=== PATIENT | female | born 1940 | race Caucasian/White ===

== ENCOUNTER 2016-08-02 17:15 | Emergency (ER) | payer OTHER, MEDICARE ==
[~2016-08-02] VITALS: Ht 162.6 cm; Wt 90.5 kg
[~2016-08-02 17:15] MED LIST: ACCOLATE10 MG PO; AMLODIPINE BESYL5 MG PO; ANTIVERT25 MG PO; ASCORBIC ACID500 M1 PO; ASPIR-TRIN325 M1 PO; ASPIRIN EC325 MG PO; ASPIRIN325 MG PO; ATROPINE 1100 DROP/5 RIGHT EYE; ATROVENT 00.5 MG/2.5 IH; Aspirin PO; BACITRACIN-POLY30 GM TP; BACTERICIN30 GM TP; BETHANECHOL CHL25 MG PO; CALCIUM600 M1 PO; CARDIZEM60 MG PO; CATAPRES0.2 MG PO; CEFTIN500 MG PO; CENTRUM COMPLE1 EACH PO; CENTRUM SILVER1 EAC4 PO; CIPRO250 MG PO; CLONIDINE HCL0.1 MG; CLONIDINE HCL0.1 MG PO; CLONIDINE HCL0.2 MG; CLOPIDOGREL TAB 75M; COZAAR50 MG PO; CYMBALTA20 MG PO; Combivent IH; DULCOLAX5 MG PO; DUONEB 2.5-0.5 M3 ML IH; ENDOCET 5-3251 EACH PO; Ecotrin PO; GABAPENTIN300 MG PO; GLUCAGON1 MG IM; HUMALOG100 UNIT/2 SC; HYDROCHLOROT TAB 25M; HYDROCHLOROTHIA25 MG PO; Hydrochlorothiazide PO; IMDUR30 MG PO; IPRATR-ALBUTEROL3 ML IH; ISOSORBIDE MONO30 MG PO; LANTUS 10100 UNITS/ SC; LANTUS 3 M100 UNITS/ SC; LANTUS 3 M100 UNITS1; LANTUS 3 M100 UNITS1 SC; LANTUS100 UNIT/1 SQ; LANTUS100 UNIT/2 SC; LASIX40 MG PO; LEVEMIR FL100 UNIT/1 SC; LEVEMIR FL100 UNITS/ SC; LEVEMIR100 UNIT/2 SC; LEVOFLOXACIN250 MG PO; LIDOCAINE700 MG TD; LIDODERM 5% P1 PATCH TD; LOPERAMIDE2 M1 PO; LOPERAMIDE2 MG PO; LOPRESSOR25 MG PO; LOPRESSOR50 MG PO; LORAZEPAM0.5 MG PO; LOSARTAN POTAS100 MG PO; Levaquin PO; Levemir Flexpen SC; Lopressor PO; MECLIZINE HCL PO; MECLIZINE HCL25 M3 PO; MECLIZINE HCL25 MG PO; METANX1 TABLET PO; METHYLPRED TAB 4MG; METOPROLOL SUCC50 MG PO; METOPROLOL TART25 MG PO; METOPROLOL TART50 MG; METOPROLOL TART50 MG PO; Medrol Dosepak PO; NEURONTIN100 MG PO; NEURONTIN300 MG PO; NITROSTAT0.4 MG; NITROSTAT0.4 MG SL; NORVASC10 MG PO; NOVOLIN 70100 UNIT/1 SQ; NOVOLIN,HU100 UNITS/; NOVOLOG MI100 UNIT/M SC; NOVOLOG PE100 UNITS/; NOVOLOG PE100 UNITS/ SC; NOVOLOG100 UNIT/1 SQ; NOVOLOG100 UNIT/2 SQ; NovoLOG Pen 3 ml SC; OMEPRAZOLE20 MG PO; OS CAL PO; OS-CAL 500+D C1 EAC1 PO; OS-CAL 500+D T1 EAC1 PO; OSCAL, OYSTER500 MG PO; OXYCODONE HCL5 MG PO; OXYCODONE-ACET1 EACH PO; PERCOCET 5/31 TABLET PO; PLAVIX75 MG; PLAVIX75 MG PO; POLYSPORIN BOTH EYES; PRED FORTE100 DROP/5 RIGHT EYE; PRINIVIL10 MG PO; PROAIR HFA8.5 GM IH; PROMETHAZINE HC25 M1 PO; PROMETHAZINE12.5 M1 PO; PROTONIX20 MG PO; PROVENTIL,2.5 MG/3 M IH; PROVENTIL2.5 MG/3 M IH; RANITIDINE HCL150 MG PO; Ranitidine HCl PO; SIMVASTATIN; SIMVASTATIN40 MG PO; SIMVASTATIN80 M1 PO; SIMVASTATIN80 MG; SIMVASTATIN80 MG PO; SMZ/TMP DS TAB 800; SPIRIVA1 INHALATI; SPIRIVA1 INHALATI IH; Simvastatin PO; TRAMADOL HCL50 MG; TRAMADOL HCL50 MG PO; TUMS500 MG PO; Tramadol HCl PO; ULTRAM50 MG PO; VIGAMOX 0.60 DROP/3 RIGHT EYE; VITAMIN C500 M1 PO; Vitamin C PO; WOMEN'S 50+ DA1 EACH PO; ZANTAC150 MG PO; ZESTRIL,PRINIVI10 M1 PO; ZESTRIL,PRINIVI10 MG PO; ZOCOR80 MG PO; Zithromax PO; Zocor PO; [UNRECOGNIZED DRUG - OTHER]; [UNRECOGNIZED DRUG - OTHER] IH; [UNRECOGNIZED DRUG - OTHER] PO; predniSONE PO
[2016-08-02] MEDS ORDERED: DOXYCYCLINE HY100 MG PO (19:53)
[2016-08-02 20:15] VITALS: BP 147/89
== END 2016-08-02 20:30 | disposition home or self-care (01) ==
LOC: EME 17:15
PROC: 0HQRXZZ Repair Toe Nail, External Approach (ICD-10-PCS; principal; 2016-08-02)
DX: S91.202A Unspecified open wound of left great toe with damage to nail, initial encounter (principal); S92.352A Displaced fracture of fifth metatarsal bone, left foot, initial encounter for closed fracture; X58.XXXA Exposure to other specified factors, initial encounter; E11.40 Type 2 diabetes mellitus with diabetic neuropathy, unspecified; I10 Essential (primary) hypertension; E78.5 Hyperlipidemia, unspecified; J44.9 Chronic obstructive pulmonary disease, unspecified; J45.909 Unspecified asthma, uncomplicated; Z79.02 Long term (current) use of antithrombotics/antiplatelets; Z79.82 Long term (current) use of aspirin
CPT/HCPCS: 73630; 99281; 99284

== ENCOUNTER 2016-09-16 09:14 | Inpatient (IN) | payer OTHER, MEDICARE ==
[~2016-09-16] VITALS: Ht 162.6 cm; Wt 93.9 kg
[2016-09-16] VITALS (8 sets, daily range): BP systolic 109–128; BP diastolic 50–73
[~2016-09-16 09:14] MED LIST changes: +DOXYCYCLINE HY100 MG PO
[2016-09-16] MEDS ORDERED: LISINOPRIL5 MG PO (09:29)
[2016-09-16] MEDS ORDERED: HUMALOG100 UNIT/2 SC ×2 (09:30→11:53)
[2016-09-16] MEDS ORDERED: LANTUS 10100 UNITS/ SC (09:30)
[2016-09-16 10:07] LABS: EOSINOPHIL (%) 0.1 % (0-5); HEMATOCRIT 38.7 % (36.0-46.0); IMMATURE GRANULOCYTE COUNT 0.1 K/uL; INSTRUMENT ABS NEUTROPHIL CT 8.4 K/uL; MCH 28.1 PG (29.0-34.0); MCHC 31.3 G/DL (30.0-36.0); MEAN PLAT.VOLUME 10.8 uM^3 (9.5-12.4); MONOCYTE (%) 1.9 % (3-12); MONOCYTE COUNT 0.2 K/uL (0-0.8); NEUTROPHIL (%) 86.2 % (45-76); NEUTROPHIL COUNT 8.4 K/uL (1.8-6.4); PLATELET COUNT 334 K/uL (156-360); RBC DIS.WIDTH-CV 13.3 % (11.8-14.6); WHITE BLOOD COUNT 9.7 K/uL (4.1-10.2)
[2016-09-16 10:17] LABS: CHLORIDE 97 mEq/L (99-109); POTASSIUM 5.9 mEq/L (3.7-5.4); SODIUM 136 mEq/L (136-147)
[2016-09-16 10:21] LABS: ANION GAP 21 MEQ/L (2-14); TOTAL BILIRUBIN 0.7 mg/dL (0.0-1.0)
[2016-09-16 10:23] LABS: ALKALINE PHOSPHATASE 205 IU/L (3-129); GFR ESTIMATE (CALCULATED) 36 mL/min/
[2016-09-16 10:24] LABS: UREA NITROGEN (BUN) 30 mg/dL (9-23)
[2016-09-16 10:32] LABS: TROP-I INTERPRETATION NEGATIVE; TROPONIN-I < 0.01 ng/mL (0.0-0.30)
[2016-09-16 10:38] LABS: GLUCOSE 705 mg/dL (70-99)
[2016-09-16 10:57] LABS: ADD MIUA? NO; BILIRUBIN NEGATIVE; BLOOD NEGATIVE; COLOR STRAW ((YELLOW)); GLUCOSE (STRIP) >=500; KETONES 80; LEUKOCYTES NEGATIVE; NITRITE NEGATIVE; PROTEIN (STRIP) NEGATIVE; SPECIFIC GRAVITY 1.022 (1.000-1.030); UCUL ADDED? NO; UROBILINOGEN 0.2 MG/DL (0.2-1.0)
[2016-09-16 11:12] LABS: INFLUENZA A VIRAL ANTIGEN NEGATIVE; INFLUENZA B VIRAL ANTIGEN NEGATIVE
[2016-09-16 11:15] LABS: BASE EXCESS -7.8 mEq/L (-3 to +3); BICARBONATE 18.9 mEq/L (22-26); CARBOXY HGB 2.8 % (0-5); METHEMOGLOBIN 0.6 % (0-1.5); PCO2 43 mm Hg (35-45); PO2 117 mm Hg (80-100)
[2016-09-16 11:16] LABS: COMMENTS - BLOOD GASES A+C+; DEVICE NC; O2 FLOW 3 L/MIN; pH 7.25 (7.35-7.45)
[2016-09-16 13:30] LABS: Estimated Average Glucose 203 mg/dL (70-123); HEMOGLOBIN A1c (GLYCOHEMOGLOB) 8.7 % HGB (Below 5.7)
[2016-09-16 17:28] LABS: ANION GAP 13 MEQ/L (2-14); CHLORIDE 104 MEQ/L (99-109); GFR ESTIMATE (CALCULATED) 51 mL/min/; SAMPLE HEMOLYSIS CHECK 0; SAMPLE ICTERIC CHECK 0; SAMPLE LIPEMIA CHECK 0; SODIUM 138 MEQ/L (136-147); UREA NITROGEN (BUN) 30 mg/dL (9-23)
[2016-09-16 17:29] LABS: GLUCOSE 448 mg/dL (70-99); POTASSIUM 4.2 MEQ/L (3.7-5.4)
[2016-09-16 17:44] LABS: POINT-OF-CARE METER ID UU13113731; POINT-OF-CARE USER ID NUTJLF39
[2016-09-16 18:48] LABS: POINT-OF-CARE METER ID UU14162636
[2016-09-16 18:50] LABS: METH RESISTANT S AUREUS PCR NEGATIVE (NEGATIVE)
[2016-09-16 19:00] LABS: PROBE CHECK PASS; SPECIMEN PROCESSING CONTROL PASS
[2016-09-16 19:56] LABS: POINT-OF-CARE METER ID UU13113731
[2016-09-16 20:46] LABS: ANION GAP 8 MEQ/L (2-14); CHLORIDE 109 MEQ/L (99-109); GFR ESTIMATE (CALCULATED) 57 mL/min/; GLUCOSE 270 mg/dL (70-99); POTASSIUM 4.1 MEQ/L (3.7-5.4); SAMPLE HEMOLYSIS CHECK 0; SAMPLE ICTERIC CHECK 0; SAMPLE LIPEMIA CHECK 0; SODIUM 141 MEQ/L (136-147); UREA NITROGEN (BUN) 29 mg/dL (9-23)
[2016-09-16 21:14] LABS: POINT-OF-CARE METER ID UU13113731
[2016-09-16 22:05] LABS: POINT-OF-CARE METER ID UU13113731
[2016-09-16 23:05] LABS: POINT-OF-CARE METER ID UU13113731
[2016-09-17] VITALS (21 sets, daily range): BP systolic 86–154; BP diastolic 34–76
[2016-09-17 00:19] LABS: POINT-OF-CARE METER ID UU14174217
[2016-09-17 01:21] LABS: POINT-OF-CARE METER ID UU14174217; POINT-OF-CARE USER ID ENVSME70
[2016-09-17 01:50] LABS: POTASSIUM 3.7 mEq/L (3.7-5.4); SODIUM 144 mEq/L (136-147)
[2016-09-17 01:51] LABS: CHLORIDE 109 mEq/L (99-109)
[2016-09-17 01:52] LABS: GLUCOSE 166 mg/dL (70-99)
[2016-09-17 01:53] LABS: ANION GAP 11 MEQ/L (2-14)
[2016-09-17 01:56] LABS: GFR ESTIMATE (CALCULATED) 51 mL/min/
[2016-09-17 01:57] LABS: UREA NITROGEN (BUN) 28 mg/dL (9-23)
[2016-09-17 03:12] LABS: POINT-OF-CARE METER ID UU14174217; POINT-OF-CARE USER ID ENVSME70
[2016-09-17 05:02] LABS: POINT-OF-CARE METER ID UU14174217
[2016-09-17 05:04] LABS: EOSINOPHIL (%) 2.2 % (0-5); EOSINOPHIL COUNT 0.2 K/uL (0-0.3); HEMATOCRIT 30.6 % (36.0-46.0); IMMATURE GRANULOCYTE (%) 0.6 % (0.0-0.7); IMMATURE GRANULOCYTE COUNT 0.1 K/uL; INSTRUMENT ABS NEUTROPHIL CT 5.8 K/uL; LYMPHOCYTE COUNT 2.6 K/uL (1.0-2.8); MCH 28.1 PG (29.0-34.0); MCV 87.7 FL (83-99); MEAN PLAT.VOLUME 9.7 uM^3 (9.5-12.4); MONOCYTE (%) 6.4 % (3-12); MONOCYTE COUNT 0.6 K/uL (0-0.8); NEUTROPHIL COUNT 5.8 K/uL (1.8-6.4); PLATELET COUNT 310 K/uL (156-360); RBC DIS.WIDTH-CV 13.6 % (11.8-14.6); RBC DIS.WIDTH-SD 43.8 % (39-53); RED BLOOD COUNT 3.49 M/uL (3.80-5.20); WHITE BLOOD COUNT 9.3 K/uL (4.1-10.2)
[2016-09-17 05:22] LABS: CHLORIDE 110 mEq/L (99-109); POTASSIUM 3.6 mEq/L (3.7-5.4); SODIUM 143 mEq/L (136-147)
[2016-09-17 05:23] LABS: MAGNESIUM 1.9 mg/dL (1.3-2.7)
[2016-09-17 05:24] LABS: GLUCOSE 151 mg/dL (70-99)
[2016-09-17 05:26] LABS: ANION GAP 9 MEQ/L (2-14)
[2016-09-17 05:28] LABS: GFR ESTIMATE (CALCULATED) 51 mL/min/
[2016-09-17 05:29] LABS: UREA NITROGEN (BUN) 26 mg/dL (9-23)
[2016-09-17 17:42] LABS: POINT-OF-CARE METER ID UU14162636
[2016-09-17 23:20] LABS: POINT-OF-CARE METER ID UU13113803; POINT-OF-CARE USER ID PHATLC
[2016-09-18] VITALS (10 sets, daily range): BP systolic 114–155; BP diastolic 54–88
[2016-09-18 06:02] LABS: EOSINOPHIL (%) 4.1 % (0-5); EOSINOPHIL COUNT 0.3 K/uL (0-0.3); HEMATOCRIT 31.4 % (36.0-46.0); IMMATURE GRANULOCYTE (%) 0.4 % (0.0-0.7); INSTRUMENT ABS NEUTROPHIL CT 4.3 K/uL; LYMPHOCYTE COUNT 1.9 K/uL (1.0-2.8); MCHC 31.2 G/DL (30.0-36.0); MCV 89.7 FL (83-99); MEAN PLAT.VOLUME 10.2 uM^3 (9.5-12.4); MONOCYTE (%) 7.2 % (3-12); MONOCYTE COUNT 0.5 K/uL (0-0.8); NEUTROPHIL COUNT 4.3 K/uL (1.8-6.4); PLATELET COUNT 294 K/uL (156-360); RBC DIS.WIDTH-CV 13.7 % (11.8-14.6); RBC DIS.WIDTH-SD 44.7 % (39-53); WHITE BLOOD COUNT 7.1 K/uL (4.1-10.2)
[2016-09-18 06:42] LABS: ANION GAP 7 MEQ/L (2-14); CHLORIDE 108 MEQ/L (99-109); GFR ESTIMATE (CALCULATED) 57 mL/min/; POTASSIUM 3.9 MEQ/L (3.7-5.4); SAMPLE HEMOLYSIS CHECK 0; SAMPLE ICTERIC CHECK 0; SAMPLE LIPEMIA CHECK 0; SODIUM 140 MEQ/L (136-147); UREA NITROGEN (BUN) 22 mg/dL (9-23)
[2016-09-18 06:44] LABS: GLUCOSE 79 mg/dL (70-99)
[2016-09-18 09:35] LABS: POINT-OF-CARE METER ID UU14162636
[2016-09-18 12:07] LABS: POINT-OF-CARE METER ID UU14162636
[2016-09-18 18:25] LABS: ANION GAP 8 MEQ/L (2-14); CHLORIDE 107 MEQ/L (99-109); GFR ESTIMATE (CALCULATED) 57 mL/min/; POTASSIUM 3.9 MEQ/L (3.7-5.4); SAMPLE HEMOLYSIS CHECK 0; SAMPLE ICTERIC CHECK 0; SAMPLE LIPEMIA CHECK 0; SODIUM 140 MEQ/L (136-147); UREA NITROGEN (BUN) 18 mg/dL (9-23)
[2016-09-18 18:35] LABS: GLUCOSE 114 mg/dL (70-99)
[2016-09-19 03:45] VITALS: BP 144/70
[2016-09-19 06:45] LABS: EOSINOPHIL (%) 3.3 % (0-5); EOSINOPHIL COUNT 0.2 K/uL (0-0.3); IMMATURE GRANULOCYTE (%) 0.8 % (0.0-0.7); IMMATURE GRANULOCYTE COUNT 0.1 K/uL; INSTRUMENT ABS NEUTROPHIL CT 4.2 K/uL; LYMPHOCYTE COUNT 1.4 K/uL (1.0-2.8); MCH 28.2 PG (29.0-34.0); MCHC 31.9 G/DL (30.0-36.0); MCV 88.3 FL (83-99); MEAN PLAT.VOLUME 10.2 uM^3 (9.5-12.4); MONOCYTE (%) 8.9 % (3-12); MONOCYTE COUNT 0.6 K/uL (0-0.8); NEUTROPHIL (%) 65.2 % (45-76); NEUTROPHIL COUNT 4.2 K/uL (1.8-6.4); PLATELET COUNT 284 K/uL (156-360); RBC DIS.WIDTH-CV 13.8 % (11.8-14.6); RBC DIS.WIDTH-SD 44.4 % (39-53); RED BLOOD COUNT 3.51 M/uL (3.80-5.20); WHITE BLOOD COUNT 6.4 K/uL (4.1-10.2)
[2016-09-19 07:07] VITALS: BP 159/75
[2016-09-19 09:45] LABS: ANION GAP 9 MEQ/L (2-14); CHLORIDE 107 MEQ/L (99-109); GFR ESTIMATE (CALCULATED) > 59 mL/min/; GLUCOSE 154 mg/dL (70-99); POTASSIUM 3.9 MEQ/L (3.7-5.4); SAMPLE HEMOLYSIS CHECK 0; SAMPLE ICTERIC CHECK 0; SAMPLE LIPEMIA CHECK 0; SODIUM 142 MEQ/L (136-147); UREA NITROGEN (BUN) 15 mg/dL (9-23)
[2016-09-19 10:15] LABS: D-DIMER ELISA 1.91 mg/L FEU (< 0.57)
[2016-09-19 16:20] VITALS: BP 124/72
[2016-09-19 19:48] LABS: ANION GAP 8 MEQ/L (2-14); CHLORIDE 105 MEQ/L (99-109); GFR ESTIMATE (CALCULATED) > 59 mL/min/; GLUCOSE 214 mg/dL (70-99); SAMPLE HEMOLYSIS CHECK 0; SAMPLE ICTERIC CHECK 0; SAMPLE LIPEMIA CHECK 0; SODIUM 139 MEQ/L (136-147); UREA NITROGEN (BUN) 15 mg/dL (9-23)
[2016-09-20 00:55] VITALS: BP 124/74
[2016-09-20 08:00] VITALS: BP 122/60
[2016-09-20 08:56] LABS: EOSINOPHIL (%) 2.8 % (0-5); EOSINOPHIL COUNT 0.2 K/uL (0-0.3); IMMATURE GRANULOCYTE (%) 0.7 % (0.0-0.7); IMMATURE GRANULOCYTE COUNT 0.1 K/uL; INSTRUMENT ABS NEUTROPHIL CT 5.3 K/uL; MCH 28.1 PG (29.0-34.0); MCHC 31.5 G/DL (30.0-36.0); MCV 89.2 FL (83-99); MEAN PLAT.VOLUME 10.2 uM^3 (9.5-12.4); MONOCYTE (%) 7.7 % (3-12); MONOCYTE COUNT 0.6 K/uL (0-0.8); NEUTROPHIL COUNT 5.3 K/uL (1.8-6.4); PLATELET COUNT 281 K/uL (156-360); RBC DIS.WIDTH-CV 13.9 % (11.8-14.6); WHITE BLOOD COUNT 7.2 K/uL (4.1-10.2)
[2016-09-20 09:08] LABS: ALKALINE PHOSPHATASE 118 IU/L (3-129); ANION GAP 9 MEQ/L (2-14); CHLORIDE 104 MEQ/L (99-109); GFR ESTIMATE (CALCULATED) > 59 mL/min/; POTASSIUM 3.8 MEQ/L (3.7-5.4); SAMPLE HEMOLYSIS CHECK 0; SAMPLE ICTERIC CHECK 0; SAMPLE LIPEMIA CHECK 0; SODIUM 138 MEQ/L (136-147); TOTAL BILIRUBIN 0.3 MG/DL (0.0-1.0); UREA NITROGEN (BUN) 11 mg/dL (9-23)
[2016-09-20 09:11] LABS: GLUCOSE 105 mg/dL (70-99)
[2016-09-20 16:00] VITALS: BP 150/70
[2016-09-21 00:05] VITALS: BP 143/70
[2016-09-21 06:35] VITALS: BP 155/74
[2016-09-21 06:54] LABS: POINT-OF-CARE METER ID UU14162508
[2016-09-21 08:21] LABS: ALKALINE PHOSPHATASE 141 IU/L (3-129); ANION GAP 8 MEQ/L (2-14); CHLORIDE 103 MEQ/L (99-109); GFR ESTIMATE (CALCULATED) > 59 mL/min/; MAGNESIUM 2.2 mg/dl (1.3-2.7); POTASSIUM 4.2 MEQ/L (3.7-5.4); SAMPLE HEMOLYSIS CHECK 0; SAMPLE ICTERIC CHECK 0; SAMPLE LIPEMIA CHECK 0; SODIUM 138 MEQ/L (136-147); UREA NITROGEN (BUN) 14 mg/dL (9-23)
[2016-09-21 08:23] LABS: GLUCOSE 345 mg/dL (70-99); TOTAL BILIRUBIN 0.4 MG/DL (0.0-1.0)
[2016-09-21 09:05] LABS: EOSINOPHIL (%) 0.2 % (0-5); HEMATOCRIT 33.1 % (36.0-46.0); IMMATURE GRANULOCYTE (%) 1.1 % (0.0-0.7); IMMATURE GRANULOCYTE COUNT 0.1 K/uL; INSTRUMENT ABS NEUTROPHIL CT 3.4 K/uL; LYMPHOCYTE COUNT 0.6 K/uL (1.0-2.8); MCH 27.7 PG (29.0-34.0); MCHC 31.4 G/DL (30.0-36.0); MEAN PLAT.VOLUME 10.5 uM^3 (9.5-12.4); MONOCYTE (%) 8.9 % (3-12); MONOCYTE COUNT 0.4 K/uL (0-0.8); NEUTROPHIL (%) 76.6 % (45-76); NEUTROPHIL COUNT 3.4 K/uL (1.8-6.4); PLATELET COUNT 302 K/uL (156-360); RBC DIS.WIDTH-CV 13.6 % (11.8-14.6); RED BLOOD COUNT 3.76 M/uL (3.80-5.20)
[2016-09-21 09:06] LABS: WHITE BLOOD COUNT 4.4 K/uL (4.1-10.2)
[2016-09-21 11:44] LABS: POINT-OF-CARE METER ID UU14162508
[2016-09-21 15:42] VITALS: BP 151/73
[2016-09-21 16:44] LABS: POINT-OF-CARE METER ID UU14162508
[2016-09-21 21:50] LABS: POINT-OF-CARE METER ID UU14162508
[2016-09-21 23:39] VITALS: BP 140/67
[2016-09-22 06:37] LABS: POINT-OF-CARE METER ID UU14162508
[2016-09-22 07:30] VITALS: BP 182/90
[2016-09-22 07:51] LABS: ALKALINE PHOSPHATASE 132 IU/L (3-129); ANION GAP 6 MEQ/L (2-14); CHLORIDE 104 MEQ/L (99-109); GFR ESTIMATE (CALCULATED) > 59 mL/min/; GLUCOSE 248 mg/dL (70-99); MAGNESIUM 2.3 mg/dl (1.3-2.7); POTASSIUM 4.3 MEQ/L (3.7-5.4); SAMPLE HEMOLYSIS CHECK 0; SAMPLE ICTERIC CHECK 0; SAMPLE LIPEMIA CHECK 0; SODIUM 140 MEQ/L (136-147); UREA NITROGEN (BUN) 17 mg/dL (9-23)
[2016-09-22 07:52] LABS: TOTAL BILIRUBIN 0.3 MG/DL (0.0-1.0)
[2016-09-22 07:57] LABS: EOSINOPHIL (%) 0 % (0-5); HEMATOCRIT 31.3 % (36.0-46.0); IMMATURE GRANULOCYTE COUNT 0.1 K/uL; INSTRUMENT ABS NEUTROPHIL CT 4.6 K/uL; LYMPHOCYTE COUNT 0.7 K/uL (1.0-2.8); MCH 27.6 PG (29.0-34.0); MCHC 31.6 G/DL (30.0-36.0); MCV 87.2 FL (83-99); MEAN PLAT.VOLUME 10.2 uM^3 (9.5-12.4); MONOCYTE COUNT 0.5 K/uL (0-0.8); NEUTROPHIL (%) 77.4 % (45-76); NEUTROPHIL COUNT 4.6 K/uL (1.8-6.4); PLATELET COUNT 333 K/uL (156-360); RBC DIS.WIDTH-CV 13.5 % (11.8-14.6); RED BLOOD COUNT 3.59 M/uL (3.80-5.20)
[2016-09-22 08:13] LABS: WHITE BLOOD COUNT 5.9 K/uL (4.1-10.2)
[2016-09-22 11:32] LABS: POINT-OF-CARE METER ID UU14162508
[2016-09-22 15:23] LABS: POINT-OF-CARE METER ID UU13113694
[2016-09-22 21:45] LABS: POINT-OF-CARE METER ID UU14162508
[2016-09-23 00:41] VITALS: BP 128/67
[2016-09-23 05:35] LABS: EOSINOPHIL (%) 0 % (0-5); HEMATOCRIT 30.5 % (36.0-46.0); IMMATURE GRANULOCYTE (%) 0.6 % (0.0-0.7); INSTRUMENT ABS NEUTROPHIL CT 3.5 K/uL; LYMPHOCYTE COUNT 1.1 K/uL (1.0-2.8); MCH 27.7 PG (29.0-34.0); MCHC 31.5 G/DL (30.0-36.0); MCV 87.9 FL (83-99); MEAN PLAT.VOLUME 10.1 uM^3 (9.5-12.4); MONOCYTE (%) 12.1 % (3-12); MONOCYTE COUNT 0.7 K/uL (0-0.8); NEUTROPHIL COUNT 3.5 K/uL (1.8-6.4); PLATELET COUNT 371 K/uL (156-360); RBC DIS.WIDTH-CV 13.7 % (11.8-14.6); RBC DIS.WIDTH-SD 44.2 % (39-53); RED BLOOD COUNT 3.47 M/uL (3.80-5.20); WHITE BLOOD COUNT 5.4 K/uL (4.1-10.2)
[2016-09-23 06:06] LABS: ALKALINE PHOSPHATASE 121 IU/L (3-129); ANION GAP 5 MEQ/L (2-14); CHLORIDE 102 MEQ/L (99-109); GFR ESTIMATE (CALCULATED) > 59 mL/min/; GLUCOSE 184 mg/dL (70-99); MAGNESIUM 2.4 mg/dl (1.3-2.7); POTASSIUM 4.2 MEQ/L (3.7-5.4); SAMPLE HEMOLYSIS CHECK 0; SAMPLE ICTERIC CHECK 0; SAMPLE LIPEMIA CHECK 0; SODIUM 138 MEQ/L (136-147); UREA NITROGEN (BUN) 19 mg/dL (9-23)
[2016-09-23 06:11] LABS: TOTAL BILIRUBIN 0.4 MG/DL (0.0-1.0)
[2016-09-23 06:59] LABS: POINT-OF-CARE METER ID UU14162508
[2016-09-23 07:40] VITALS: BP 130/69
[2016-09-23 08:31] LABS: POINT-OF-CARE METER ID UU14162636
[2016-09-23 08:32] LABS: POINT-OF-CARE METER ID UU14100415
[2016-09-23 08:32] LABS: POINT-OF-CARE METER ID UU13113731
[2016-09-23 08:32] LABS: POINT-OF-CARE METER ID UU14100415
[2016-09-23 08:32] LABS: POINT-OF-CARE METER ID UU14100415
[2016-09-23 11:31] LABS: POINT-OF-CARE METER ID UU14162508
[2016-09-23 16:49] LABS: POINT-OF-CARE METER ID UU13113819
[2016-09-23 20:00] VITALS: BP 98/53
[2016-09-24 00:15] VITALS: BP 163/74
[2016-09-24 03:10] VITALS: BP 139/67
[2016-09-24 06:07] LABS: ALKALINE PHOSPHATASE 113 IU/L (3-129); ANION GAP 8 MEQ/L (2-14); CHLORIDE 103 MEQ/L (99-109); GFR ESTIMATE (CALCULATED) > 59 mL/min/; MAGNESIUM 2.4 mg/dl (1.3-2.7); SAMPLE HEMOLYSIS CHECK 1; SAMPLE ICTERIC CHECK 0; SAMPLE LIPEMIA CHECK 0; SODIUM 141 MEQ/L (136-147); UREA NITROGEN (BUN) 19 mg/dL (9-23)
[2016-09-24 06:08] LABS: GLUCOSE 303 mg/dL (70-99); POTASSIUM 4.5 MEQ/L (3.7-5.4); TOTAL BILIRUBIN 0.5 MG/DL (0.0-1.0)
[2016-09-24 06:13] LABS: ABS NEUTROPHIL COUNT 2.5; BAND NEUTROPHILS 1.8 % (0-8.0); EOSINOPHIL ABS CT 0; HEMATOCRIT 30.9 % (36.0-46.0); INSTRUMENT ABS NEUTROPHIL CT 2.2 K/uL; LYMPHOCYTES 20.3 % (15.0-45.0); MCV 87.5 FL (83-99); MEAN PLAT.VOLUME 10.3 uM^3 (9.5-12.4); PLAT.SUFFICIENCY ADEQUATE; PLATELET COUNT 341 K/uL (156-360); RBC DIS.WIDTH-CV 13.6 % (11.8-14.6); RBC DIS.WIDTH-SD 43.6 % (39-53); RED BLOOD COUNT 3.53 M/uL (3.80-5.20); SEG.NEUTROPHILS 69.9 % (46.0-76.0)
[2016-09-24 06:14] LABS: WHITE BLOOD COUNT 3.5 K/uL (4.1-10.2)
[2016-09-24 07:10] VITALS: BP 155/79
[2016-09-24 11:21] VITALS: BP 154/82
[2016-09-24 16:10] VITALS: BP 153/72
[2016-09-24 23:16] VITALS: BP 145/73
[2016-09-25 00:13] VITALS: BP 121/62
[2016-09-25 06:54] VITALS: BP 157/71
[2016-09-25 08:55] LABS: ABS NEUTROPHIL COUNT 3.4; ANISOCYTOSIS 1+; EOSINOPHIL ABS CT 0; HEMATOCRIT 32.2 % (36.0-46.0); INSTRUMENT ABS NEUTROPHIL CT 3.5 K/uL; LYMPHOCYTES 32.7 % (15.0-45.0); MCH 27.5 PG (29.0-34.0); MCHC 31.1 G/DL (30.0-36.0); MCV 88.5 FL (83-99); MEAN PLAT.VOLUME 10.1 uM^3 (9.5-12.4); MICROCYTOSIS 1+; OVALOCYTES 1+; PLAT.SUFFICIENCY INCREASED; PLATELET COUNT 413 K/uL (156-360); POIKILOCYTOSIS 1+; POLYCHROMASIA 1+; RBC DIS.WIDTH-CV 13.6 % (11.8-14.6); RBC DIS.WIDTH-SD 43.7 % (39-53); RED BLOOD COUNT 3.64 M/uL (3.80-5.20); SEG.NEUTROPHILS 60.2 % (46.0-76.0); WHITE BLOOD COUNT 5.6 K/uL (4.1-10.2)
[2016-09-25] MEDS ORDERED: SPIRIVA RESPIMAT4 GM IH (10:11)
[2016-09-25] MEDS ORDERED: PANTOPRAZOLE SO40 MG PO (10:12)
[2016-09-25] MEDS ORDERED: ADVAIR HFA120 INHALA IH (10:12)
[2016-09-25] MEDS ORDERED: PREDNISONE10 MG PO (10:13)
[2016-09-25] MEDS ORDERED: ENDOCET 5-3251 EACH PO (10:13)
[2016-09-25] MEDS ORDERED: CALCIUM 500 +1 EACH PO (10:14)
== END 2016-09-25 14:05 | DRG 637 ==
LOC: EME → EDBD 09:14 → EDOF 14:52 → 2EASTP 14:52 → 4WEST 14:52 → 2EASTP 09-18 14:33
PROVIDERS: Emergency Medicine; Hospitalist; Internal Medicine; Internal Medicine Nephrology
PROC: 0DB78ZX Excision of Stomach, Pylorus, Via Natural or Artificial Opening Endoscopic, Diagnostic (ICD-10-PCS; principal; 2016-09-23)
DX: E13.10 Other specified diabetes mellitus with ketoacidosis without coma (principal); J96.01 Acute respiratory failure with hypoxia; N17.9 Acute kidney failure, unspecified; J90 Pleural effusion, not elsewhere classified; J44.0 Chronic obstructive pulmonary disease with (acute) lower respiratory infection; I50.32 Chronic diastolic (congestive) heart failure; J44.1 Chronic obstructive pulmonary disease with (acute) exacerbation; I13.0 Hypertensive heart and chronic kidney disease with heart failure and stage 1 through stage 4 chronic kidney disease, or unspecified chronic kidney disease; K22.2 Esophageal obstruction; J20.9 Acute bronchitis, unspecified; E87.5 Hyperkalemia; I25.10 Atherosclerotic heart disease of native coronary artery without angina pectoris; K21.9 Gastro-esophageal reflux disease without esophagitis; E78.5 Hyperlipidemia, unspecified; G89.29 Other chronic pain; N18.9 Chronic kidney disease, unspecified; M87.851 Other osteonecrosis, right femur; I35.0 Nonrheumatic aortic (valve) stenosis; R47.81 Slurred speech; R20.0 Anesthesia of skin; Z87.891 Personal history of nicotine dependence; K29.70 Gastritis, unspecified, without bleeding; I25.2 Old myocardial infarction; Z79.4 Long term (current) use of insulin; K25.9 Gastric ulcer, unspecified as acute or chronic, without hemorrhage or perforation; N39.0 Urinary tract infection, site not specified; E11.319 Type 2 diabetes mellitus with unspecified diabetic retinopathy without macular edema; K59.00 Constipation, unspecified; F03.90 Unspecified dementia, unspecified severity, without behavioral disturbance, psychotic disturbance, mood disturbance, and anxiety; E11.22 Type 2 diabetes mellitus with diabetic chronic kidney disease
CPT/HCPCS: 36600; 70450; 70551; 71010; 71250; 74000; 74176; 74230; 78582; 80048; 80048 91; 80053; 81003; 82803; 82948; 83036; 83605; 83735; 84100; 84484; 85025; 85379; 87040; 87502; 87641; 88305; 88342 TC; 92526 GN; 92610 GN; 92611 GN; 93970; 94010; 94640; 94640 76; 94760; 94799; 99202; 99281; 99285; A9540; A9567; J0696; J1644; J1815; J2405; J7030; J7050; J7512

== ENCOUNTER 2017-11-27 04:53 | Emergency (ER) | payer OTHER, MEDICARE ==
[~2017-11-27] VITALS: Ht 162.6 cm; Wt 95.2 kg
[~2017-11-27 04:53] MED LIST changes: +ADVAIR HFA120 INHALA IH; +CALCIUM 500 +1 EACH PO; +LISINOPRIL5 MG PO; +PANTOPRAZOLE SO40 MG PO; +PREDNISONE10 MG PO; +SPIRIVA RESPIMAT4 GM IH
[2017-11-27] MEDS ORDERED: CEFDINIR300 MG PO (05:19)
[2017-11-27] MEDS ORDERED: MUCINEX1200 MG PO (05:21)
[2017-11-27] MEDS ORDERED: FLONASE16 G1 BOTH NARES (05:21)
[2017-11-27 05:59] VITALS: BP 159/87
== END 2017-11-27 06:07 | disposition home or self-care (01) ==
LOC: EME → EDBD 04:53 → EME 06:07
DX: J01.90 Acute sinusitis, unspecified (principal); J30.9 Allergic rhinitis, unspecified; H65.03 Acute serous otitis media, bilateral; I13.0 Hypertensive heart and chronic kidney disease with heart failure and stage 1 through stage 4 chronic kidney disease, or unspecified chronic kidney disease; I50.32 Chronic diastolic (congestive) heart failure; N18.9 Chronic kidney disease, unspecified; F03.90 Unspecified dementia, unspecified severity, without behavioral disturbance, psychotic disturbance, mood disturbance, and anxiety; I25.10 Atherosclerotic heart disease of native coronary artery without angina pectoris; I25.2 Old myocardial infarction; E11.319 Type 2 diabetes mellitus with unspecified diabetic retinopathy without macular edema; E11.22 Type 2 diabetes mellitus with diabetic chronic kidney disease; J44.9 Chronic obstructive pulmonary disease, unspecified; E78.5 Hyperlipidemia, unspecified; G89.4 Chronic pain syndrome; F41.9 Anxiety disorder, unspecified; Z79.4 Long term (current) use of insulin; Z79.82 Long term (current) use of aspirin; Z79.02 Long term (current) use of antithrombotics/antiplatelets; Z90.49 Acquired absence of other specified parts of digestive tract; Z87.891 Personal history of nicotine dependence; Z88.7 Allergy status to serum and vaccine; Z88.8 Allergy status to other drugs, medicaments and biological substances
CPT/HCPCS: 99281; 99284

== ENCOUNTER 2018-01-05 09:13 | Observation (INO) | payer OTHER, MEDICARE ==
[~2018-01-05] VITALS: Ht 162.6 cm; Wt 96.0 kg
[~2018-01-05 09:13] MED LIST changes: +CEFDINIR300 MG PO; +FLONASE16 G1 BOTH NARES; +LISINOPRIL20 MG PO; -LISINOPRIL5 MG PO; +MUCINEX1200 MG PO
[2018-01-05 10:54] LABS: BASOPHIL (%) 0.5 % (0-1); EOSINOPHIL (%) 2.1 % (0-5); EOSINOPHIL COUNT 0.1 K/uL (0-0.3); HEMATOCRIT 35.7 % (36.0-46.0); IMMATURE GRANULOCYTE (%) 0.5 % (0.0-0.7); LYMPHOCYTE COUNT 1.3 K/uL (1.0-2.8); MCH 29.8 PG (29.0-34.0); MCHC 33.6 G/DL (30.0-36.0); MCV 88.6 FL (83-99); MONOCYTE (%) 5.7 % (3-12); MONOCYTE COUNT 0.4 K/uL (0-0.8); NEUTROPHIL (%) 70.2 % (45-76); NEUTROPHIL COUNT 4.3 K/uL (1.8-6.4); PLATELET COUNT 258 K/uL (156-360); RBC DIS.WIDTH-CV 13.3 % (11.8-14.6); RBC DIS.WIDTH-SD 43.5 % (39-53); RED BLOOD COUNT 4.03 M/uL (3.80-5.20); WHITE BLOOD COUNT 6.2 K/uL (4.1-10.2)
[2018-01-05 11:03] LABS: INTER. NORMALIZED RATIO 0.9
[2018-01-05 11:05] LABS: CHLORIDE 107 mEq/L (99-109); MAGNESIUM 2.6 mg/dL (1.3-2.7); POTASSIUM 4.8 mEq/L (3.7-5.4); PTT 26.9 SEC (25-37); SODIUM 139 mEq/L (136-147)
[2018-01-05 11:07] LABS: GLUCOSE 382 mg/dL (70-99)
[2018-01-05 11:10] LABS: CREATININE 1.1 mg/dL (0.6-1.3); GFR ESTIMATE (CALCULATED) 51 mL/min/
[2018-01-05 11:11] LABS: UREA NITROGEN (BUN) 24 mg/dL (9-23)
[2018-01-05 11:15] LABS: TROP-I INTERPRETATION NEGATIVE; TROPONIN-I 0.02 ng/mL (0.0-0.30)
[2018-01-05] MEDS ORDERED: LANTUS 10100 UNITS/ SC (14:40)
[2018-01-05] MEDS ORDERED: HUMALOG100 UNIT/2 SC (14:42)
[2018-01-05] MEDS ORDERED: PROTONIX20 MG PO (14:42)
[2018-01-05] MEDS ORDERED: CALCIUM 600 +1 EAC4 PO (14:43)
[2018-01-05 16:12] LABS: CREATINE KINASE 27 IU/L (1-294); TOTAL CK 27 IU/L (1-294)
[2018-01-05 16:19] LABS: CK-MB 1.4 ng/mL (0.0-4.9); CKMB RELATIVE INDEX 5.2 (0.0-3.9)
[2018-01-05 16:48] LABS: HDL CHOLESTEROL 53 MG/DL (Desirable>=50); LDL CHOLESTEROL 104 mg/dL (Desirable<100); NON-HDL CHOLESTEROL 116 mg/dL (Desirable<160); TOTAL CHOLESTEROL 169 mg/dL (Desirable<200); TRIGLYCERIDES 60 MG/DL (Normal: <150)
[2018-01-05 17:15] VITALS: BP 154/85
[2018-01-05 19:09] LABS: TROP-I INTERPRETATION NEGATIVE; TROPONIN-I 0.02 ng/mL (0.0-0.30)
[2018-01-05 19:40] VITALS: BP 156/85
[2018-01-05 23:47] VITALS: BP 156/86
[2018-01-06 03:11] LABS: HEMATOCRIT 33.4 % (36.0-46.0); HEMOGLOBIN 11.1 G/DL (11.9-15.5); MCH 29.6 PG (29.0-34.0); MCHC 33.2 G/DL (30.0-36.0); MCV 89.1 FL (83-99); PLATELET COUNT 249 K/uL (156-360); RBC DIS.WIDTH-CV 13.4 % (11.8-14.6); RBC DIS.WIDTH-SD 43.8 % (39-53); RED BLOOD COUNT 3.75 M/uL (3.80-5.20); WHITE BLOOD COUNT 5.3 K/uL (4.1-10.2)
[2018-01-06 03:19] LABS: INTER. NORMALIZED RATIO 1.1
[2018-01-06 03:27] LABS: ALBUMIN 3.3 g/dL (3.2-4.8); CHLORIDE 109 mEq/L (99-109)
[2018-01-06 03:28] LABS: SODIUM 142 mEq/L (136-147)
[2018-01-06 03:30] LABS: GLUCOSE 322 mg/dL (70-99); TOTAL PROTEIN 5.2 g/dL (6.4-8.3)
[2018-01-06 03:31] LABS: MAGNESIUM 2.1 mg/dL (1.3-2.7)
[2018-01-06 03:32] LABS: TOTAL BILIRUBIN 0.4 mg/dL (0.0-1.0)
[2018-01-06 03:33] LABS: ALKALINE PHOSPHATASE 122 IU/L (3-129)
[2018-01-06 03:34] LABS: CREATININE 1.1 mg/dL (0.6-1.3); GFR ESTIMATE (CALCULATED) 51 mL/min/
[2018-01-06 03:35] LABS: AST (GOT) 13 IU/L (2-34); UREA NITROGEN (BUN) 21 mg/dL (9-23)
[2018-01-06 03:37] LABS: ALT (GPT) 13 IU/L (3-49)
[2018-01-06 03:40] LABS: TROP-I INTERPRETATION NEGATIVE; TROPONIN-I 0.02 ng/mL (0.0-0.30)
[2018-01-06 04:16] VITALS: BP 121/62
[2018-01-06 07:35] VITALS: BP 158/77
[2018-01-06 08:28] LABS: THYROTROPIN (TSH) 2.4 MIU/L (0.4-5.5)
[2018-01-06 10:17] LABS: ERTH.SED.RATE 19 MM/HR (0-30)
[2018-01-06] MEDS ORDERED: CARVEDILOL6.25 MG PO (13:29)
== END 2018-01-06 15:45 | disposition home or self-care (01) ==
LOC: EME 09:13 → EDOF 14:41 → ENRESERV 14:53 → 4SOUTH 17:01
PROVIDERS: Emergency Medicine; Internal Medicine
DX: R07.89 Other chest pain (principal); R94.31 Abnormal electrocardiogram [ECG] [EKG]; I10 Essential (primary) hypertension; I25.10 Atherosclerotic heart disease of native coronary artery without angina pectoris; E78.5 Hyperlipidemia, unspecified; K21.9 Gastro-esophageal reflux disease without esophagitis; J44.9 Chronic obstructive pulmonary disease, unspecified; E11.9 Type 2 diabetes mellitus without complications; E66.9 Obesity, unspecified; Z88.8 Allergy status to other drugs, medicaments and biological substances; Z91.048 Other nonmedicinal substance allergy status; Z88.7 Allergy status to serum and vaccine; Z95.5 Presence of coronary angioplasty implant and graft; I35.0 Nonrheumatic aortic (valve) stenosis; Z87.11 Personal history of peptic ulcer disease; I25.2 Old myocardial infarction; Z90.49 Acquired absence of other specified parts of digestive tract; Z82.49 Family history of ischemic heart disease and other diseases of the circulatory system; Z99.3 Dependence on wheelchair; Z79.82 Long term (current) use of aspirin; Z79.4 Long term (current) use of insulin
CPT/HCPCS: 71045; 71275; 80048; 80053; 80061; 82550 91; 82553; 82948; 83735; 83880; 84443; 84484; 85025; 85027; 85379; 85610; 85651; 85730; 93005; 99281; 99285; G0378; J1650; J1815; J7030